=== PATIENT | male | born 1980 | race Hispanic/Latino ===

== ENCOUNTER 2023-03-06 08:05 | Emergency (ER) | payer BC ==
[~2023-03-06] VITALS: Ht 182.9 cm; Wt 81.2 kg
[2023-03-06] MEDS ORDERED: KETOROLAC 60 MG VIAL (30MG/ML) IM ONE (09:00)
[2023-03-06 09:05] VITALS: BP 115/78; PULSE 61; RESP 16; O2SAT 98
[2023-03-06] MEDS ORDERED: IBUP-2077 PO (09:06)
== END 2023-03-06 09:24 | disposition home or self-care (01) ==
LOC: EDH 08:05
DX: M25.562 Pain in left knee (principal)
CPT/HCPCS: 99284; 73560; 96372; J1885

== ENCOUNTER 2023-04-15 10:21 | Emergency (ER) | payer BC ==
[~2023-04-15] VITALS: Ht 182.9 cm; Wt 84.4 kg
[~2023-04-15 10:21] MED LIST: IBUP-2077 PO
[2023-04-15] MEDS ORDERED: LIDOCAINE 2%-EPI 1:200,000 20 ML VIAL IJ SCH (12:00)
[2023-04-15] MEDS ORDERED: IBUPROFEN 800 MG TAB PO ONE (13:30)
[2023-04-15] MEDS ORDERED: TRAMADOL HCL 50 MG TABLET PO ONE (13:30)
[2023-04-15] MEDS ORDERED: CEPH500T PO (13:43)
[2023-04-15 14:30] VITALS: BP 126/74; PULSE 76; RESP 16; O2SAT 99
== END 2023-04-15 15:00 | disposition home or self-care (01) ==
LOC: EDH 10:21
DX: L02.31 Cutaneous abscess of buttock (principal)
CPT/HCPCS: 10060; 87070; 87076; 87077; 87186; J3490